=== PATIENT | female | born 1970 | race Caucasian/White ===

== ENCOUNTER 2021-10-23 20:53 | Emergency (ER) | payer OTHER ==
[2021-10-23] MEDS ORDERED: PROMETHAZINE INJ 25 MG/ML AMP ONE (21:45)
[2021-10-23] MEDS ORDERED: MEPERIDINE HCL 25 MG/ML SYR ONE (21:46)
[2021-10-23] MEDS ORDERED: NA CHLORIDE 0.9% 1,000 ML ONE (21:46)
[2021-10-23] MEDS ORDERED: NA CHLORIDE 0.9% 50 ML ONE (21:46)
[2021-10-23 21:54] LABS: Urine Blood 2+ (Negative); Urine Glucose Negative (Negative); Urine Protein Negative (Negative); Urine Specific Gravity >=1.030 (1.005-1.030)
[2021-10-23 22:16] LABS: Urine Bacteria 20-50 /HPF (<20); Urine RBC None Seen /HPF (None Seen)
[2021-10-23 22:19] LABS: Hematocrit 41.1 % (36.0-45.0); Lymphocytes % 19.3 % (15.3-44.8); MCV 89.5 fL (80-100); RBC Red Blood Cell Count 4.59 M/uL (3.86-4.86)
[2021-10-23] MEDS ORDERED: DOXYCYCLINE 100 MG CAP PO ONE (22:44)
[2021-10-23 22:57] LABS: Ferritin 31.8 ng/mL (8-388); Folic Acid, (Folate) 9.9 ng/mL (3.1-17.5); Potassium 3.9 mmol/L (3.5-5.1)
--- NOTE | 2021-10-24 00:59 | ER ---
Nurse's Notes [facility] Name: Francia Bailon Age: 50 yrs Sex: Female : 1970 Arrival Date: 10/23/2021 Time: 20:55 Bed 16 Private MD: Diagnosis: Lower abdominal pain, unspecified;Abnormal uterine and vaginal bleeding, unspecified;Other ovarian cysts Presentation: 10/23 21:13 Chief complaint: Patient states: "Today I have been having really bad lower abdominal as6 pain. I've had a little bit of nausea also." pt also states that she has had a menstrual cycle off and on since 09/16. Coronavirus screen: At this time, the client does not indicate any symptoms associated with coronavirus-19. Ebola Screen: No symptoms or risks identified at this time. Initial Sepsis Screen: Does the patient meet any 2 criteria? No. Patient's initial sepsis screen is negative. Does the patient have a suspected source of infection? No. Patient's initial sepsis screen is negative. Risk Assessment: Do you want to hurt yourself or someone else? Patient reports no desire to harm self or others. Onset of symptoms was October 23, 2021. 21:13 Method Of Arrival: Ambulatory as6 21:13 Acuity: GARRY 3 as6 Triage Assessment: 10/24 01:24 General: Appears uncomfortable, Behavior is calm, cooperative, appropriate for age. tw5 HOSPITAL PLAN ADMINISTRATOR: 10/23 21:27 0 snw 10/24 01:24 LMP 10/24/2021 tw5 Historical: - Allergies: 10/23 21:23 PENICILLINS; as6 - Home Meds: 21:23 Synthroid 50 mcg Oral tab 1 tab once daily [Active]; lisinopril 20 mg Oral tab 1 tab as6 once daily [Active]; Crestor 5 mg oral tab 1 tab once daily [Active]; - PMHx: 21:23 Hypothyroidism; Hypertensive disorder; Hypercholesterolemia; as6 - PSHx: 21:23 breast reduction; back; fibroid removal; eye; as6 - Immunization history:: Client reports receiving the 2nd dose of the Covid vaccine, moderna . - Social history:: Smoking status: Patient denies any tobacco usage or history of. Screenin:58 Abuse screen: Denies threats or abuse. Denies injuries from another. Nutritional tw5 screening: No deficits noted. Tuberculosis screening: No symptoms or risk factors identified. Fall Risk None identified. Assessment: 21:58 General: Reports "I have been bleeding since September, but today I started having clots. I tw5 just had a doozy in the bathroom here. It was a lot of blood in there.". Pain: Denies pain. Neuro: No deficits noted. Cardiovascular: No deficits noted. Respiratory: No deficits noted. GI: Abdomen is obese, Bowel sounds present X 4 quads. Abd is soft and non tender. : Reports vaginal bleeding that is with clots, heavy flow. 22:00 General: Reports "The pain just went away after passing those clots.". tw5 22:39 Reassessment: No changes from previously documented assessment. Patient and/or family tw5 updated on plan of care and expected duration. Pain level reassessed. Patient is alert, oriented x 3, equal unlabored respirations, skin warm/dry/pink. 10/24 01:22 Reassessment: Patient states feeling better. Patient states symptoms have improved. tw5 Vital Signs: 10/23 21:13 BP 151 / 106; Pulse 67; Resp 18 S; Temp 98.0(O); Pulse Ox 97% on R/A; Weight 104.33 kg as6 (R); Height 5 ft. 3 in. (160.02 cm) (R); Pain 6/10; 22:06 BP 148 / 70; Pulse 70; Resp 18; Pulse Ox 100% on R/A; tw5 21:13 Body Mass Index 40.74 (104.33 kg, 160.02 cm) as6 ED Course: 20:55 Patient arrived in ED. bp1 21:04 King Otto, AKIN is Primary Nurse. as6 21:11 Leona Nelson FNP-C is PHCP. snw 21:11 Tobias Thompson MD is Attending Physician. snw 21:22 Triage completed. as6 21:26 Arm band placed on. as6 21:57 Urine Microscopic Only Sent. tw5 21:57 Iron Level Sent. tw5 21:57 B12 Sent. tw5 21:57 Folic Acid,Serum (folate) Sent. tw5 21:57 Type And Screen Sent. tw 21:57 Ferritin Sent. tw 21:57 TIBC Sent. tw5 21: Chem 7 Sent. : CBC with Diff Sent. : No apparent distress. Awaiting lab results, Awaiting CT Scan. :58 Patient has correct armband on for positive identification. Bed in low position. Call tw5 light in reach. Side rails up X 1. Adult w/ patient. Pulse ox on. NIBP on. Door closed. Noise minimized. Moved to private room. Warm blanket given. Verbal reassurance given. : Assisted to bathroom. :58 Initial lab(s) drawn, by me, sent to lab. Urine collected: clean catch specimen. tw Inserted saline lock: 20 gauge in left antecubital area, using aseptic technique. Blood collected. 10/24 00:15 CT Abd/Pelvis - PO and IV Contrast In Process Unspecified. EDMS 01:22 No provider procedures requiring assistance completed. IV discontinued, intact, tw bleeding controlled, No redness/swelling at site. Pressure dressing applied, x2. Administered Medications: 10/23 20:57 Not Given (Patient Refused): Demerol (meperidine) 25 mg IVP once :58 Drug: Phenergan (promethazine) 6.25 mg Route: IVP; Site: left antecubital; tw 22:39 Follow up: Response: No adverse reaction :58 Drug: NS 0.9% 1000 ml Route: IV; Rate: 125 ml/hr; Site: left antecubital; tw10/24 01:23 Follow up: IV Status: Order to discontinue infusion; IV Intake: 300ml tw10/23 22:39 Drug: Doxycycline 100 mg Route: PO; tw10/24 01:23 Follow up: Response: No adverse reaction tw Medication: 10/23 21:58 VIS not applicable for this client. tw Intake: 10/24 01:23 IV: 300ml; Total: 300ml. Outcome: 00:59 Discharge ordered by MD. villafuerte 01:22 Discharged to home ambulatory. tw 01:22 Condition: good 01:22 Discharge instructions given to patient, Instructed on discharge instructions, follow up and referral plans. Demonstrated understanding of instructions, follow-up care, medications, Prescriptions given X 2. 01:24 Patient left the ED. Signatures: Dispatcher [employer] EDMS Leona Nelson, TAPER PRINTED CIRCUIT LAYOUT-C TAPER PRINTED CIRCUIT LAYOUT-Csnw Jessica Cazares Tiffany tw5 King Otto, RN RN as6
--- NOTE | 2021-10-24 01:00 | EDPHYS ---
Physician Documentation [facility] Name: Francia Bailon Age: 50 yrs Sex: Female : 1970 Arrival Date: 10/23/2021 Time: 20:55 Bed 16 Private MD: VIN Physician Tobias Thompson HPI: 10/23 21:25 This 50 yrs old Female presents to ER via Ambulatory with complaints of Abdominal Pain, snw Nausea, Dizziness. 21:25 The patient presents with abdominal pain in the lower abdomen. Onset: The snw symptoms/episode began/occurred suddenly, and became worse and became persistent. Associated signs and symptoms: Pertinent positives: nausea, pt has been on her cycle since August. Pt was told she is going through menopause. Pt had 7 fibroid tumors removed and then tried IVF x 2. No children. . The symptoms are described as constant, crampy, stabbing, pressure. Severity of pain: At its worst the pain was moderate severe. The patient has not experienced similar symptoms in the past. INFORMATION DIRECTOR: 21:27 0 snw 10/24 01:24 LMP 10/24/2021 tw5 Historical: - Allergies: 10/23 21:23 PENICILLINS; as6 - Home Meds: 21:23 Synthroid 50 mcg Oral tab 1 tab once daily [Active]; lisinopril 20 mg Oral tab 1 tab as6 once daily [Active]; Crestor 5 mg oral tab 1 tab once daily [Active]; - PMHx: 21:23 Hypothyroidism; Hypertensive disorder; Hypercholesterolemia; as6 - PSHx: 21:23 breast reduction; back; fibroid removal; eye; as6 - Immunization history:: Client reports receiving the 2nd dose of the Covid vaccine, moderna . - Social history:: Smoking status: Patient denies any tobacco usage or history of. ROS: 21:27 Eyes: Negative for injury, pain, redness, and discharge, ENT: Negative for injury, snw pain, and discharge, Neck: Negative for injury, pain, and swelling, Cardiovascular: Negative for chest pain, palpitations, and edema, Respiratory: Negative for shortness of breath, cough, wheezing, and pleuritic chest pain. 21:27 Back: Negative for injury and pain. 21:27 MS/Extremity: Negative for injury and deformity, Skin: Negative for injury, rash, and discoloration. 21:27 Constitutional: Positive for body aches, malaise. 21:27 Abdomen/GI: Positive for abdominal pain, nausea, abdominal cramps, Negative for vomiting, diarrhea, constipation. 21:27 : Positive for vaginal bleeding, menstrual abnormality. 21:27 Neuro: Positive for dizziness. Exam: 21:28 Constitutional: This is a well developed, well nourished patient who is awake, alert, snw and in no acute distress. Head/Face: Normocephalic, atraumatic. Eyes: Pupils equal round and reactive to light, extra-ocular motions intact. Lids and lashes normal. Conjunctiva and sclera are non-icteric and not injected, + pale. Cornea within normal limits. Periorbital areas with no swelling, redness, or edema. ENT: Nares patent. No nasal discharge, no septal abnormalities noted. Tympanic membranes are normal and external auditory canals are clear. Oropharynx with no redness, swelling, or masses, exudates, or evidence of obstruction, uvula midline. Mucous membranes moist. Neck: Trachea midline, no thyromegaly or masses palpated, and no cervical lymphadenopathy. Supple, full range of motion without nuchal rigidity, or vertebral point tenderness. No Meningismus. Chest/axilla: Normal chest wall appearance and motion. Nontender with no deformity. No lesions are appreciated. Cardiovascular: Regular rate and rhythm with a normal S1 and S2. No gallops, murmurs, or rubs. Normal PMI, no JVD. No pulse deficits. Respiratory: Lungs have equal breath sounds bilaterally, clear to auscultation and percussion. No rales, rhonchi or wheezes noted. No increased work of breathing, no retractions or nasal flaring. Back: No spinal tenderness. No costovertebral tenderness. Full range of motion. MS/ Extremity: Pulses equal, no cyanosis. Neurovascular intact. Full, normal range of motion. Neuro: Awake and alert, GCS 15, oriented to person, place, time, and situation. Cranial nerves II-XII grossly intact. Motor strength 5/5 in all extremities. Sensory grossly intact. Cerebellar exam normal. Normal gait. 21:28 Skin: Appearance: Color: pale. 21:29 Abdomen/GI: Inspection: distension, that is moderate, Bowel sounds: normal, in all snw quadrants, Palpation: mild abdominal tenderness, in the right lower quadrant and left lower quadrant, moderate abdominal tenderness, in the suprapubic area. Vital Signs: 21:13 BP 151 / 106; Pulse 67; Resp 18 S; Temp 98.0(O); Pulse Ox 97% on R/A; Weight 104.33 kg as6 (R); Height 5 ft. 3 in. (160.02 cm) (R); Pain 6/10; 22:06 BP 148 / 70; Pulse 70; Resp 18; Pulse Ox 100% on R/A; tw5 21:13 Body Mass Index 40.74 (104.33 kg, 160.02 cm) as6 MDM: 21:27 Data reviewed: vital signs, nurses notes. Data interpreted: Pulse oximetry: on room air snw is 97 %. Interpretation: normal. Counseling: I had a detailed discussion with the patient and/or guardian regarding: the historical points, exam findings, and any diagnostic results supporting the discharge/admit diagnosis, the presence of at least one elevated blood pressure reading (>120/80) during this emergency department visit, lab results, radiology results. 21:46 Patient medically screened. snw 23:03 Response to treatment: the patient's symptoms have markedly improved after treatment. snw ED course: feeling better, awaiting contrast time for CT. . 23:50 Awaiting: pt to CT at 2350. snw 10/23 21:21 Order name: CBC with Diff; Complete Time: 22:25 snw 10/23 21:21 Order name: Chem 7; Complete Time: 22:58 snw 10/23 21:21 Order name: TIBC; Complete Time: 22:58 snw 10/23 21:21 Order name: Ferritin; Complete Time: 22:58 snw 10/23 21:21 Order name: B12; Complete Time: 22:58 snw 10/23 21:21 Order name: Folic Acid,Serum (folate); Complete Time: 22:58 snw 10/23 21:21 Order name: Iron Level snw 10/23 21:21 Order name: Type And Screen; Complete Time: 22:51 snw 10/23 21:21 Order name: CT Abd/Pelvis - PO and IV Contrast snw 10/23 21:21 Order name: Urine Microscopic Only; Complete Time: 22:23 snw 10/23 21:55 Order name: Urine Dipstick-Ancillary; Complete Time: 22:09 EDGA 10/23 22:19 Order name: Urine Culture [facility] 10/23 21:21 Order name: Urine Dipstick-Ancillary (obtain specimen); Complete Time: 21:57 snw Administered Medications: 21:57 Not Given (Patient Refused): Demerol (meperidine) 25 mg IVP once 21:58 Drug: Phenergan (promethazine) 6.25 mg Route: IVP; Site: left antecubital; 22:39 Follow up: Response: No adverse reaction 21:58 Drug: NS 0.9% 1000 ml Route: IV; Rate: 125 ml/hr; Site: left antecubital; 10/24 01:23 Follow up: IV Status: Order to discontinue infusion; IV Intake: 300ml tw5 10/23 22:39 Drug: Doxycycline 100 mg Route: PO; 10/24 01:23 Follow up: Response: No adverse reaction Disposition: 07:20 Co-signature as Attending Physician, Tobias Thompson MD. [email or web address] Disposition Summary: 10/24/21 00:59 Discharge Ordered Location: Home snw Condition: Stable snw Diagnosis - Lower abdominal pain, unspecified snw - Abnormal uterine and vaginal bleeding, unspecified snw - Other ovarian cysts snw Followup: snw - With: Emergency Department - When: As needed - Reason: Worsening of condition Followup: snw - With: Private Physician - When: 2 - 3 days - Reason: Recheck today's complaints, Continuance of care, Re-evaluation by your physician Discharge Instructions: - Discharge Summary Sheet snw - Abdominal Pain, Adult snw - Uterine Fibroids snw - Ovarian Cyst snw - Urinary Tract Infection, Adult snw - Dysfunctional Uterine Bleeding snw Forms: - Medication Reconciliation Form snw - Thank You Letter snw - Antibiotic Education snw - Prescription Opioid Use snw Prescriptions: - Mobic 7.5 mg Oral Tablet - take 1 tablet by ORAL route once daily take with food; 20 tablet; Refills: 0, snw Product Selection Permitted - Doxycycline Hyclate 100 mg Oral Tablet - take 1 tablet by ORAL route every 12 hours; 20 tablet; Refills: 0, Product snw Selection Permitted Signatures: Dispatcher [employer] EDMS Leona Nelson, ASSOCIATE SPA DIRECTOR-C ASSOCIATE SPA DIRECTOR-Csnw Tobias Thompson MD MD 7 April Wolf 5 King Otto RN RN as6
[2021-10-24 03:34] VITALS: TEMP 98
[2021-10-24 03:37] VITALS: BP 148/70; O2SAT 100
--- NOTE | 2021-10-24 12:35 | RAD REPORT ---
EXAM DESCRIPTION: CT - Abdomen Pelvis W Contrast - 10/24/2021 6:53 am CLINICAL HISTORY: The patient is 50 years old and is Female; Abdominal pain, acute, nonlocalized TECHNIQUE: Axial computed tomography images of the abdomen and pelvis with intravenous contrast. S agittal and coronal reformatted images were created and reviewed. This CT exam was performed using one or more of the following dose reduction techniques: automated exposure control, adjustment of t he mA and/or kV according to patient size, and/or use of iterative reconstruction technique. DLP: 3659 mGy*cm COMPARISON: None. FINDINGS: LUNG BASES: Lung bases are clear. HEART: Visualized heart is normal. ABDOMEN: LIVER: Unremarkable. No mass. GALLBLADDER AND BILE DUCTS: Unremarkable. No calcified stones. No ductal dilation. PANCREAS: Unremarkable. No mass. No ductal dilation. SPLEEN: Unremarkable. No splenomegaly. ADRENALS: Unremarkable. No mass. KIDNEYS AND URETERS: Unremarkable. No solid mass. No hydronephrosis. STOMACH AND BOWEL: Enteric contrast in the small and large bowel. No mucosal thickening. PELVIS: APPENDIX: No findings to suggest acute appendicitis. BLADDER: Unremarkable. No mass. REPRODUCTIVE: Cystic lesion in the lower uterine segment measuring 3.1 cm. Left adnexal cyst measuring 2.9 cm. ABDOMEN and PELVIS: INTRAPERITONEAL SPACE: Unremarkable. No free air. No significant fluid collection. BONES/JOINTS: Osteopenia. L5-S1 degenerative changes. No acute fracture. No dislocation. SOFT TISSUES: Unremarkable. VASCULATURE: Unremarkable. No abdominal aortic aneurysm. LYMPH NODES: Unremarkable. No enlarged lymph nodes. IMPRESSION: 1. No acute abdominal or pelvic abnormality. 2. Cystic lesion in the lower uterine segment measuring 3.1 cm. 3. Left adnexal cyst measuring 2.9 cm. No follow-up imaging is recommended. Reference: JACR 2019;17(2):[id number] Electronically signed by: Antonio Lane DO 10/24/2021 12:52 AM CDT Due to temporary technical issues with the PACS/Fluency reporting system, reports are being signed by the in house radiologists without review as a courtesy to insure prompt reporting. The interpreting radiologist is fully responsible for the content of the report.
== END 2021-10-24 01:24 | disposition home or self-care (01) ==
LOC: ER 20:53
DX: R10.30 Lower abdominal pain, unspecified (principal); N83.292 Other ovarian cyst, left side; N93.9 Abnormal uterine and vaginal bleeding, unspecified; R11.0 Nausea; R42 Dizziness and giddiness; I10 Essential (primary) hypertension; E03.9 Hypothyroidism, unspecified; E78.00 Pure hypercholesterolemia, unspecified; Z88.0 Allergy status to penicillin
CPT/HCPCS: 87088; 85025; 87086; 80048; 36415; 86900; 86850; 86901; 82728; 82746; 82607; 83540; 84466; 74177; Q9967; J2550; J7030; 81003; 81015; 96361; 96374; 99284; J2175

== ENCOUNTER → 2023-04-04 | Emergency (ER) | payer OTHER ==
[~2023-04-04] MED LIST: FENTANYL CITR 100 MCG/2 ML ONE; KETOROLAC 30 MG/ML INJ ONE; MORPHINE 2 MG/ML SYR ONE
[2023-04-04 03:46] LABS: Absolute Lymphocytes (CBC) 2.3 K/uL (0.7-4.9); Hematocrit 39.7 % (36.0-45.0); Lymphocytes % 25.5 % (15.3-44.8); MCV 91.6 fL (80-100); MPV 8.3 fL (7.6-11.3); Platelets 275 thou/uL (152-406); RBC Red Blood Cell Count 4.34 M/uL (3.86-4.86)
[2023-04-04 03:56] LABS: Protime INR 1.04
[2023-04-04 04:04] LABS: Potassium 3.6 mEq/L (3.5-5.1); Troponin High Sensitivity 14.3 pg/mL (<58.9)
--- NOTE | 2023-04-04 06:12 | EDPHYS ---
Physician Documentation [facility] Name: Francia Bailon Age: 52 yrs Sex: Female : 1970 Arrival Date: 04/04/2023 Time: 03:14 Bed 8 Private MD: ED Physician Compa Baldwin HPI: 04/04 03:51 This 52 yrs old Female presents to ER via Ambulatory with complaints of Chest ec2 Pain, Chest Tightness, Shortness Of Breath. 03:51 Patient arrives today for evaluation of chest pain. Reports she has been having chest ec2 pain for the past 3 to 4 hours. Patient reports no specific alleviating or exacerbating factors. States that she has had previous chest pain, has had previous stress test with no conclusive findings. Patient reports no lower extremity swelling. Reports a history of hypertension as well as hypothyroidism.. Historical: - Allergies: 03:32 PENICILLINS; jb4 - PMHx: 03:32 Hypercholesterolemia; Hypertensive disorder; Hypothyroidism; jb4 - PSHx: 03:32 back; breast reduction; eye; fibroid removal; jb4 - Immunization history:: Adult Immunizations up to date. - Social history:: Smoking status: Patient denies any tobacco usage or history of. ROS: 03:51 Constitutional: as per hpi ec2 Exam: 03:51 Constitutional: GEN: NAD Head: atraumatic Eyes: EOMI Ears: External ears are ec2 normal. CV: regular rate LUNGS: no respiratory distress ABD: non-distended SKIN: no evidence of rashes MSK: no evidence of trauma NEURO: moves all extremities equally Vital Signs: 03:30 BP 131 / 66; Pulse 82; Resp 16; Temp 97.5(TE); Pulse Ox 100% on R/A; jb4 05:13 BP 111 / 60; Pulse 76; Resp 16; Pulse Ox 95% ; jj7 MDM: 03:19 Patient medically screened. ec2 03:51 Data reviewed: vital signs. ED course: Patient arrives today for evaluation of chest ec2 pain. Examination remarkable for well-appearing nontoxic individual is otherwise in no acute distress. Will obtain lab work, EKG, chest x-ray for further assessment of his complaint. Currently considering process such as ACS, costochondritis, low suspicion for PE or dissection.. 03:52 ED course: EKG independently reviewed and interpreted by me, shows normal sinus rhythm, ec2 rate of 87, no acute ST segment elevations, nonconcerning intervals.. 04:45 ED course: Metabolic profile is reassuring, reassuring CBC, troponin and BNP are within ec2 appropriate ranges. Will obtain repeat EKG and troponin. . 05:04 ED course: Chest x-ray shows no acute intrathoracic pathology.. ec2 05:48 ED course: Repeat EKG independently reviewed and interpreted by me, shows normal sinus ec2 rhythm, rate 76, no acute ST segment elevations, no significant changes from previous EKG.. 05:54 ED course: Repeat troponin within normal ranges, no significant change, D-dimer within ec2 normal ranges.. 06:10 ED course: On reassessment patient is well-appearing and in no acute distress. Will ec2 discharge home. Return precautions given.. 04/04 03:19 Order name: Basic Metabolic Panel; Complete Time: 04:45 ec2 04/04 03:19 Order name: CBC with Diff; Complete Time: 04:45 ec2 04/04 03:19 Order name: NT PRO-BNP; Complete Time: 04:45 ec2 04/04 03:19 Order name: Troponin HS; Complete Time: 04:45 ec2 04/04 03:19 Order name: Ptt, Activated; Complete Time: 04:45 ec2 04/04 03:19 Order name: PT-INR; Complete Time: 04:45 ec2 04/04 05:14 Order name: Troponin HS; Complete Time: 05:54 ec2 04/04 05:14 Order name: D-Dimer; Complete Time: 05:54 ec2 04/04 03:19 Order name: XRAY Chest (1 view) ec2 04/04 03:19 Order name: EKG; Complete Time: 03:20 ec2 04/04 03:19 Order name: Cardiac monitoring; Complete Time: 03:30 ec2 04/04 03:19 Order name: EKG - Nurse/Tech; Complete Time: 03:32 ec2 04/04 03:19 Order name: IV Saline Lock; Complete Time: 03:39 ec2 04/04 03:19 Order name: Labs collected and sent; Complete Time: 03:39 ec2 04/04 03:19 Order name: O2 Per Protocol; Complete Time: 03:30 ec2 04/04 03:19 Order name: O2 Sat Monitoring; Complete Time: 03:30 ec2 04/04 05:14 Order name: EKG - Nurse/Tech; Complete Time: 05:29 ec2 Administered Medications: 04:00 Drug: morphine IVP or IV 2 mg IVP once over 4 mins Route: IVP; Infused Over: 4 mins; jb4 Site: right antecubital; 04:45 Follow up: Response: Pain is unchanged, physician notified jj7 05:11 Drug: fentaNYL (PF) IVP 100 mcg IVP once Route: IVP; Site: right antecubital; jj7 05:11 Drug: Ketorolac IVP 15 mg IVP once Route: IVP; Site: right antecubital; jj7 Disposition Summary: 04/04/23 06:11 Discharge Ordered Notes: Location: Home ec2 Condition: Stable ec2 Diagnosis - Chest pain, unspecified ec2 Followup: ec2 - With: Private Physician - When: - Reason: Recheck today's complaints Discharge Instructions: - Discharge Summary Sheet ec2 - Nonspecific Chest Pain, Adult ec2 Forms: - Medication Reconciliation Form ec2 - Thank You Letter ec2 - Antibiotic Education ec2 - Prescription Opioid Use ec2 - Patient Portal Instructions ec2 - Leadership Thank You Letter ec2 Signatures: Dispatcher [employer] Himanshu Miller RN RN jb4 Deb Kirby RN RN jj7 Compa Baldwin MD MD ec2
--- NOTE | 2023-04-04 06:12 | ER ---
Nurse's Notes [facility] Name: Francia Bailon Age: 52 yrs Sex: Female : 1970 Arrival Date: 04/04/2023 Time: 03:14 Bed 8 Private MD: Diagnosis: Chest pain, unspecified Presentation: 04/04 03:30 Chief complaint: Patient states: Around 1 am I started having a pressure light chest jb4 pain on the left side of my chest and SOB. Coronavirus screen: At this time, the client does not indicate any symptoms associated with coronavirus-19. Ebola Screen: No symptoms or risks identified at this time. Initial Sepsis Screen: Does the patient meet any 2 criteria? No. Patient's initial sepsis screen is negative. Does the patient have a suspected source of infection? No. Patient's initial sepsis screen is negative. Risk Assessment: Do you want to hurt yourself or someone else? Patient reports no desire to harm self or others. Onset of symptoms was April 04, 2023. Transition of care: patient was not received from another setting of care. 03:30 Method Of Arrival: Ambulatory jb4 03:30 Acuity: GARRY 3 jb4 Historical: - Allergies: 03:32 PENICILLINS; jb4 - PMHx: 03:32 Hypercholesterolemia; Hypertensive disorder; Hypothyroidism; jb4 - PSHx: 03:32 back; breast reduction; eye; fibroid removal; jb4 - Immunization history:: Adult Immunizations up to date. - Social history:: Smoking status: Patient denies any tobacco usage or history of. Screenin:31 [facility] ED Fall Risk Assessment (Adult) History of falling in the last 3 months, jb4 including since admission No falls in past 3 months (0 pts) Confusion or Disorientation No (0 pts). Abuse screen: Denies threats or abuse. Nutritional screening: No deficits noted. Tuberculosis screening: No symptoms or risk factors identified. Assessment: 03:30 General: Appears in no apparent distress. uncomfortable, Behavior is calm, cooperative, jb4 appropriate for age. Pain: Complains of pain in anterior aspect of left upper chest Pain does not radiate. Pain currently is 8 out of 10 on a pain scale. Quality of pain is described as pressure, Pain began 2 hours ago. Neuro: Level of Consciousness is awake, alert, obeys commands, Oriented to person, place, time, situation. Cardiovascular: Patient's skin is warm and dry. Respiratory: Airway is patent Respiratory effort is even, unlabored. GI: No signs and/or symptoms were reported involving the gastrointestinal system. : No signs and/or symptoms were reported regarding the genitourinary system. EENT: No signs and/or symptoms were reported regarding the EENT system. Derm: Skin is intact, Skin is pink, warm \T\ dry. Musculoskeletal: Circulation, motion, and sensation intact. Range of motion: intact in all extremities. 06:31 Reassessment: Patient appears in no apparent distress at this time. Patient and/or jb4 family updated on plan of care and expected duration. Pain level reassessed. Patient is alert, oriented x 3, equal unlabored respirations, skin warm/dry/pink. Vital Signs: 03:30 BP 131 / 66; Pulse 82; Resp 16; Temp 97.5(TE); Pulse Ox 100% on R/A; jb4 05:13 BP 111 / 60; Pulse 76; Resp 16; Pulse Ox 95% ; jj7 ED Course: 03:17 Patient arrived in ED. jj6 03:18 Compa Baldwin MD is Attending Physician. ec2 03:30 Initial lab(s) drawn, by me, sent to lab. Inserted saline lock: 18 gauge in right jb4 antecubital area, using aseptic technique. Blood collected. 03:30 Patient maintains SpO2 saturation greater than 95% on room air. jb4 03:32 Triage completed. jb4 03:32 Arm band placed on right wrist. jb4 03:39 Basic Metabolic Panel Sent. jb4 03:39 CBC with Diff Sent. jb4 03:39 NT PRO-BNP Sent. jb4 03:39 Troponin HS Sent. jb4 03:39 PT-INR Sent. jb4 03:39 Ptt, Activated Sent. jb4 03:43 XRAY Chest (1 view) In Process Unspecified. EDMS 06:31 Patient has correct armband on for positive identification. Client placed on continuous jb4 cardiac and pulse oximetry monitoring. NIBP monitoring applied. color television console monitor on. 06:31 No provider procedures requiring assistance completed. IV discontinued, intact, jb4 bleeding controlled, No redness/swelling at site. Pressure dressing applied. Administered Medications: 04:00 Drug: morphine IVP or IV 2 mg IVP once over 4 mins Route: IVP; Infused Over: 4 mins; jb4 Site: right antecubital; 04:45 Follow up: Response: Pain is unchanged, physician notified jj7 05:11 Drug: fentaNYL (PF) IVP 100 mcg IVP once Route: IVP; Site: right antecubital; jj7 05:11 Drug: Ketorolac IVP 15 mg IVP once Route: IVP; Site: right antecubital; jj7 Outcome: 06:11 Discharge ordered by . [email or web address] 06:31 Discharged to home ambulatory, jb4 06:31 Condition: stable 06:31 Discharge instructions given to patient, Instructed on discharge instructions, follow up and referral plans. Demonstrated understanding of instructions, follow-up care, :31 Patient left the ED. jb4 Signatures: Dispatcher [employer] Himanshu Miller RN RN jb4 Melina Card jj6 Deb Kirby RN RN jj7 Compa Baldwin MD MD ec2
[2023-04-04 06:59] VITALS: TEMP 97.5
[2023-04-04 07:11] VITALS: BP 111/60; O2SAT 95
--- NOTE | 2023-04-05 10:38 | RAD REPORT ---
EXAM DESCRIPTION: RAD - Chest Single View - 04/04/2023 3:41 am CLINICAL HISTORY: The patient is 52 years old and is Female; CHEST PAIN Bed Name: 8 TECHNIQUE: Frontal view of the chest. COMPARISON: No relevant prior studies available. FINDINGS: LUNGS: No discrete focal consolidation. PLEURAL SPACE: No appreciable pleural effusion or pneumothorax. MEDIASTINUM: Prominence of the cardiomediastinal silhouette, likely exaggerated secondary to portab le technique, lordotic positioning, and patient body habitus. BONES/JOINTS: No acute osseous abnormality. IMPRESSION: No acute findings are identified in the chest. Electronically signed by: Adolfo Church MD 04/04/2023 04:19 AM CNA HHA Due to temporary technical issues with the PACS/Fluency reporting system, reports are being signed by the in house radiologist without review as a courtesy to ensure prompt reporting. The interpreting r adiologist is fully responsible for the content of the report.
== END ==
LOC: ER 03:14
DX: R07.89 Other chest pain (principal); I10 Essential (primary) hypertension; E03.9 Hypothyroidism, unspecified; Z88.0 Allergy status to penicillin
CPT/HCPCS: 93005 ×2; 85025; 80048; 36415; 85610; 85379; 85730; 84484 ×2; 83880; 71045; J3010; J2270